=== PATIENT | female | born 1940 | race Caucasian/White ===

== ENCOUNTER 2024-09-20 14:35 | Inpatient (IN) | payer OTHER, MEDICARE, SELFPAY ==
[2024-09-20] VITALS (21 sets, daily range): BP systolic 84–140; BP diastolic 46–66; PULSE 59–112; RESP 12–99; TEMP 36.8–37.2; O2SAT 94–100; BMI 27.4
--- NOTE | 2024-09-20 14:57 | EKG_ITS ---
[facility] Test Date: 2024-09-20 Pat Name: ALEX ORNELAS Department: Room: - Gender: Female D[employer] Hand: : 1940 Requested By: Dawit Scanlon ([employer]PERVISOR) Order Number: [id number] Reading MD: Dawit Scanlon ([employer]PER[employer]OR) Measurements Intervals [place] Rate: 112 P: 17 CT: 148 QRS: -17 QRSD: 80 T: 17 QT: 322 QTc: 441 Interpretive Statements SINUS TACHYCARDIA POSSIBLE ANTERIOR MYOCARDIAL INFARCTION , PROBABLY OLD [30 ms Q WAVE IN V3/V4, OR R < 0.2 mV IN V4] ABNORMAL RHYTHM ECG Compared to ECG 06/25/2022 07:37:16 Myocardial infarct finding now present Sinus bradycardia no longer present /store/S0/[id number]
--- NOTE | 2024-09-20 15:20 | XR_ITS ---
Examination: CT brain head without contrast. 2-D sagittal coronal reconstructions Date and time of exam:September 20, 2024 1619 hours Comparison June 25, 2022 INDICATIONS: Onset dizziness today CTDI: vol (mGy):47.1 DLP: (mGycm):911 Technique: Multiple CT axial sections of the brain have been obtained, 5 mm slice thickness. Contrast has not been administered. 2-D sagittal, coronal reconstructions have been obtained Low dose protocols were performed. One or more of the following dose reduction techniques were used; automated exposure control, adjustment of the mA and/or KV according to patient size, use of iterative reconstruction technique. Findings: No significant ventricular enlargement. Intra-axial or extra-axial hemorrhage density is not seen. No mass effect or midline shift Basal cisterns are not remarkable. Fourth ventricle is midline. Cranial vault intact. Significant left sphenoid sinusitis Impression: Negative for acute hemorrhage, mass effect or midline shift As clinically warranted, if symptoms persist, consider brain MRI follow-up
--- NOTE | 2024-09-20 15:20 | PD.EDRME ---
Rapid Medical Screening Exam RME Arrival date/time: 09/20/24 14:35 84-year-old female presents to the emergency department complaints of dizziness patient reports previous episodes of the same Chief Complaint: Dizziness Time Seen by Provider: 09/20/24 14:57 Vital signs: Vital Signs Temperature 98.9 F 09/20/24 14:37 Pulse Rate 109 H 09/20/24 14:37 Respiratory Rate 19 09/20/24 14:37 Blood Pressure 140/46 H 09/20/24 14:37 Pulse Oximetry (%) 94 L 09/20/24 14:37 Oxygen Delivery Method Room Air 09/20/24 14:37
[2024-09-20] MEDS: MECLIZINE HCL 25 MG TABLET 50 MG PO (16:08)
[2024-09-20 16:18] LABS: Basophils % (Auto) 0 % (0-2.5); Eosinophils # (Auto) 0.1 Thou/mm3 (0.0-0.5); Eosinophils % (Auto) 1 % (0-10); Hematocrit 33.6 % (36.0-46.0); Hemoglobin 11.9 g/dL (12.0-16.0); Immature Granulocytes % (Auto) 0 % (0-0); Immature Granulocytes Auto 0.04 Thou/mm3 (0.00-0.00); Lymphocytes # (Auto) 0.6 Thou/mm3 (1.0-4.8); Lymphocytes % (Auto) 5 % (10-50); Mean Corpuscular HGB Conc 35.4 g/dl (31.0-37.0); Mean Corpuscular Hemoglobin 33.6 pg (25.0-35.0); Mean Corpuscular Volume 95 fL (80-100); Monocytes # (Auto) 0.8 Thou/mm3 (0.0-0.8); Monocytes % (Auto) 7 % (0-12); Neutrophils # (Auto) 10.2 Thou/mm3 (1.8-7.7); Neutrophils % (Auto) 87 % (37-80); Nucleated Red Blood Cell % 0 /100 WBC (0); Platelet Count 209 Thou/mm3 (140-440); RDW Standard Deviation 43.8 fL (36.4-46.3); Red Blood Count 3.54 Miln/mm3 (4.00-5.20); White Blood Count 11.7 Thou/mm3 (3.6-11.0)
[2024-09-20 17:01] LABS: Alanine Aminotransferase 11 U/L (10-49); Albumin, Serum 4.3 gm/dL (3.4-4.8); Albumin/Globulin Ratio 1.5 (1.2-2.2); Alkaline Phosphatase 73 U/L (46-116); Anion Gap 6 (7-16); Aspartate Amino Transferase 19 U/L (0-34); BUN/Creatinine Ratio 15 Ratio (12-20); Bilirubin,Total 0.7 mg/dL (0.3-1.2); Blood Urea Nitrogen 15 mg/dL (9-23); Calcium 9.5 mg/dL (8.3-10.6); Calcium (Corrected) 9.5 mg/dL (8.5-10.1); Carbon Dioxide 28.3 mMol/L (20.0-31.0); Chloride 98 mMol/L (98-107); Estimated Creatinine Clearance 38.7 mL/min (>60); Globulin 2.8 gm/dL (2.3-3.5); Glucose 117 mg/dL (74-106); Magnesium 1.7 mg/dL (1.6-2.6); Osmolality,Calculated 266 (275-295); Potassium 3.5 mMol/L (3.4-5.1); Sodium 132 mMol/L (136-145); Total Protein 7.1 gm/dL (5.7-8.2); eGFR 55 See Note
[2024-09-20 17:03] LABS: Troponin I 0.148 ng/mL (0.0-0.045)
--- NOTE | 2024-09-20 18:11 | EDNOTE_ITS ---
ED Dizzyness RME/HPI General Chief Complaint: Dizziness Stated Complaint: DIZZINESS,WEAKNESS Time Seen by Provider: 09/20/24 14:57 Source: patient and EMS Arrival date/time: 09/20/24 14:35 Mode of arrival: EMS Limitations: no limitations RME / HPI RME / HPI Narrative: 09/20/24 14:35 84-year-old female presents to the emergency department complaints of dizziness patient reports previous episodes of the same Dr. Morgan's Main ED Evaluation: 84-year-old female with history of hypertension and hypercholesterolemia who presents to the emergency department via ambulance for complaints of dizziness and chills since 1PM today. Patient notes she was in her usual health this morning when suddenly at 1PM she had onset of chills, chest discomfort and 1 large vomiting episode. She also reports headache but denies being dizzy. She also denies diaphoresis, shortnes of breath, cough, falls, injuries, loss of consciousness, chest pain, abdominal pain, UTI symptoms, URI, fever, chills, leg swelling or PND orthopnea. She reports past history of dizziness on and off. She denies history of diabetes. No history of tobacco, alcohol or substance use. No home oxygen. PCP: Gurwinder Galaviz Related Data Home Medications ?Medication ?Instructions ?Recorded ?Confirmed lisinopril 20 1 tab PO HS 06/25/22 06/25/22 mg-hydrochlorothiazide 25 mg tablet pravastatin 20 mg tablet 1 tab PO QDAY 06/25/22 06/25/22 timolol maleate 0.5 % eye drops 1 drp ophthalmic (eye) BID 06/25/22 06/25/22 Allergies Allergy/AdvReac Type Severity Reaction Status Date / Time No Known Allergies Allergy Unverified 06/25/22 17:05 Review of Systems Review of Systems Systems Reviewed: All systems reviewed, normal except as documented Past Medical History Past Medical History NEUROLOGIC: Negative Seizures CARDIAC: Negative Congestive Heart Failure RESPIRATORY: Negative Chronic Obstructive Pulmonary Disease (COPD) GENITOURINARY: Negative Renal Disease ENDOCRINE: Negative Diabetes Mellitus Type 1 or Diabetes Mellitus Type 2 OTHER HISTORY: Positive Blood Transfusions; Negative Blood Transfusion Reaction or Anesthesia Reactions Social History SMOKING STATUS: Never smoker ED Exam Narrative Physical exam: GENERAL: Patient is alert awake oriented x3 under no distress, laying down comfortably at 30-45?; does not look ill/ toxic. Patient has good eye contact. Patient is cooperative. VITALS: All vitals were reviewed and the pulse ox is 98% on room air, which is normal according to my interpretation. HEENT: Normocephalic, atraumatic and nontender. Pupils are equal and reactive to light and accommodation. Oral mucosa are moist. NECK: Supple, nontender, no meningismus, no JVD. CHEST: Nontender on palpation, no deformity and no crepitus. CARDIOVASCULAR: Heart regular rhythm no murmur or gallop rub or extra beats; not tachycardic. LUNGS: Clear to auscultation bilaterally with symmetrical chest rise. No laboring tachypnea or wheezing. No intercostal subcostal retraction. No rales and no rhonchi. ABDOMEN: Soft, flat, nontender at all, no guarding or rebound tenderness. There are no abnormal masses palpated. No pulsatile masses or bruits. Active and normal bowel sounds. GENITALIA: Not examined. RECTAL EXAM: Not done. EXTREMITIES: Nontender. No edema. No cyanosis. Patient is able to move all 4 extremities well. SKIN: Warm and dry, no rashes noted. MUSCULOSKELETAL: No lumbar or midline bony tenderness. There is no CVA tenderness. No paraspinal muscle spasm or tenderness. NEURO: Cranial nerves II through XII grossly intact. There is no focalization. GCS is 15. PSYCHIATRIC: Patient is in normal mood and affect, cooperative. General Limitations: Present no limitations Course Course Course Narrative: CXR is ordered for determining etiology of chest discomfort. Quality Measures none Orders Category Date Time Status COVID-19 Screening Questionnaire NOW Care 09/20/24 19:19 Completed Decision to Admit X1 Care 09/20/24 19:19 Active EKG (ED ONLY) *Do not use* NOW Care 09/20/24 14:57 Completed EKG (ED ONLY) *Do not use* NOW Care 09/20/24 19:[address] head/brain wo con Stat Exams 09/20/24 15:20 Completed CXRP [XR chest 1V portable] Stat Exams 09/20/24 18:35 Taken EKG (ED Only) Stat Exams 09/20/24 14:57 Draft EKG (ED Only) Stat Exams 09/20/24 19:17 Draft BNP [B-Type Natriuretic Peptide] Stat Lab 09/20/24 19:31 Received CBC Stat Lab 09/20/24 15:54 Completed Comprehensive Metabolic Panel Stat Lab 09/20/24 15:54 Completed Mag [Magnesium] Stat Lab 09/20/24 15:54 Completed PT [Prothrombin Time with INR] Stat Lab 09/20/24 15:54 Completed PTT [Partial Thromboplastin Time] Stat Lab 09/20/24 15:54 Completed Troponin I Stat Lab 09/20/24 15:54 Completed Troponin I Stat Lab 09/20/24 19:18 Received UA, C/S IF [Urinalysis, C/S if Indicated] Stat Lab 09/20/24 15:21 Ordered Aspirin Med 09/20/24 18:32 Discontinued 325 mg PO X1 ONE Meclizine HCl [Antivert] Med 09/20/24 15:21 Discontinued 50 mg PO X1 ONE Nitroglycerin Oint 2% [Nitro-paste Oint 2%] Med 09/20/24 18:32 Discontinued 1 inch TOP X1 ONE Vital Signs Vital signs: Vital Signs Temperature 98.9 F 09/20/24 14:37 Pulse Rate 109 H 09/20/24 14:37 Respiratory Rate 19 09/20/24 14:37 Blood Pressure 140/46 H 09/20/24 14:37 Pulse Oximetry (%) 94 L 09/20/24 14:37 Oxygen Delivery Method Room Air 09/20/24 14:37 Procedures -ED EKG Interpretation #1: Date of EK09/20/24 Rate: 112 Interpretation: Interpreted by me EKG Impression: Normal sinus rhythm, [place] deviation, No ectopy, Sinus tachycardia and Normal intervals Additional EKG comment: Borderline left axis deviation. Possible old anterior wall PA. Possible new anteroseptal wall PA. #2: Date of EK09/20/24 Rate: 69 Interpretation: Interpreted by me EKG Impression: Normal sinus rhythm, No acute ST-T changes, No ectopy, Sinus arrhythmia, No ischemic changes, Normal QRS, Normal intervals and Normal axis Dizziness MDM Narrative MDM Narrative:: Scribe Attestation: Shashi Artis, am scribing for and in the presence of Dr. Morgan. Patient comes in by ambulance due to dizziness and chills that she had at 1 PM. She arrived to this hospital at 2:35 PM. Patient states that she was doing well in the morning, she went out shopping and everything was okay until she all of a sudden at around 1 PM she started feeling chills and she had some kind of a discomfort in her chest and then after that she vomited once but in a large amount. She denies diaphoresis shortness of breath or coughing. She did have a mild headache but she denies being dizzy per se. She denies any fall or injuries or loss of consciousness. She denies chest pain per se. She denies any abdominal pain or UTI symptoms. She denies any recent URI or any fever chills. She denies leg swelling or PND orthopnea. In her past medical history she had dizziness on and off and she suffers of hypertension but no diabetes. She never had chest pains or any PA in the past. She does take medication for hypercholesterolemia and for hypertension but no blood thinners. She denies smoking or alcohol. She does not use any oxygen at home. Looking at her old records, patient was here in February of last year and after that she has been having blood work as an outpatient. Her white count today is 11.7 with a left shift of 87 segs 0 bands and 5 lymphs H&H is 12 and 33 her platelet count is normal at 209. Her chemistries are all normal including her BUN and creatinine at 15 and 1.0. Her blood sugar is borderline normal at 117 but her troponin is acutely elevated at 0.148 which is new and I do not have any comparison number to that in the past.. EKG does not show any acute STEMI nor any significant T wave inversion. Her initial blood pressure was 140/46 with a heart rate of 109 and right now it is 115/87 with a heart rate of 87. We gave her an aspirin and Nitropaste 1 inch and we will admit her to the hospital. I will order 1 more troponin and an EKG right now. I will also order a chest x-ray due to her chest discomfort. Patient obviously needs to be admitted to the hospital. At 7:52 PM, her chest x-ray has been done and it is negative for cardiomegaly, perihilar congestion, cephalization, any fluids in her costophrenic areas, any infiltrates or any free air underneath the diaphragm according to my interpretation. At 7:20 PM, I discussed this case with Dr. Coleman and she was admitted to the hospital. Differential diagnoses: Dizziness, chills, ischemic CVA, ischemic chest pain, unstable angina, uncontrolled high blood pressure Provider Notation: Although this document has been carefully reviewed, there may still be some phonetic and other typographical errors. These errors are purely grammatical due to imperfections in the software program and should not be construed in any way to compromise the substance of the patient's medical care during this visit. Patient data External records reviewed:: [facility] previous records and EMS form Clinical information provided by:: patient and EMS Social determinants that could affect healthcare access:: none Patient has the following chronic illnesses:: hypercholesterolemia, hypertension How is presenting disease/condition affected by chronic disease/condition?: uneffected by Evaluation data The following diagnostics were reviewed and interpreted by me:: lab results, radiology exam(s) and EKG tracing(s) Lab and/or radiology exams considered but not ordered:: None Interpretation Summary: I personally reviewed CT BRAIN HEAD WO CONTRAST on this patient. Films were reviewed. I agree with the radiologist's interpretation. Examination: CT brain head without contrast. 2-D sagittal coronal reconstructions Date and time of exam:September 20, 2024 1619 hours Comparison June 25, 2022 INDICATIONS: Onset dizziness today Findings: No significant ventricular enlargement. Intra-axial or extra-axial hemorrhage density is not seen. No mass effect or midline shift Basal cisterns are not remarkable. Fourth ventricle is midline. Cranial vault intact. Significant left sphenoid sinusitis Impression: Negative for acute hemorrhage, mass effect or midline shift As clinically warranted, if symptoms persist, consider brain MRI follow-up Dictated By: Juan Schrader MD Medications / Prescriptions Medications or Prescriptions considered but not ordered:: None Medication administrations:: Medication Administration History Discontinued Medications Aspirin (Aspirin 325 Mg Tablet) 325 mg PO X1 ONE Stop: 09/20/24 18:33 Last Admin: 09/20/24 18:52 Dose: 325 mg Documented By: BUNNY Meclizine HCl (Meclizine Hcl 25 Mg Tablet) 50 mg PO X1 ONE Stop: 09/20/24 15:22 Last Admin: 09/20/24 16:08 Dose: 50 mg Documented By: ANGIE Nitroglycerin (Nitroglycerin Oint 2% 1 Inch Packet) 1 inch TOP X1 ONE Stop: 09/20/24 18:33 Last Admin: 09/20/24 18:53 Dose: 1 inch Documented By: BUNNY As above, if any Consultations Consultation(s) initiated? (list below): Yes Consultation #1 (Physician, Specialty, Details): See narrative Diagnosis Dizziness Differential Diagnosis: other (Dizziness, chills, ischemic CVA, ischemic chest pain, unstable angina, uncontrolled high blood pressure) Most likely diagnosis given after review of the tests above:: Chest pain, Angina pectoris, Angina pectoris, unstable, Elevated troponin Admission Indicated Admission indicated?: indicated Explain why admission is indicated or not indicated:: See narrative Admission Request Was there a request for admission?: Yes Admission Attestation Admission request attestation: Discussed case with [] from Hospitalist service regarding admission. Discussed patients ED course, exam findings, labs, and radiology results. The Hospitalist [agrees,declines] to accept the patient for admission. Disposition Plan Disposition Plan: Admit Discharge Plan Plan Patient Disposition: Admit Acute Care w/in Hospital Prescriptions/Referrals Prescriptions/Med Rec: No Action lisinopril-hydrochlorothiazide 20-25 mg tablet 1 tab PO HS pravastatin 20 mg tablet 1 tab PO QDAY timolol maleate 0.5 % Drops 1 drp OPHTHALMIC (EYE) BID Referrals: Gurwinder Galaviz MD [Primary Care Provider] - In 1 week Problem List Clinical Impression: Chest pain, Angina pectoris, Angina pectoris, unstable, Elevated troponin Patient/Caregiver Discharge Instructions Print Language: Vietnamese Stand Alone Forms: Maye Award Info., Patient Portal Info Letter
--- NOTE | 2024-09-20 18:35 | XR_ITS ---
Examination: AP chest single view Technique an AP portable sitting chest single view Exam date and time: September 21, 2024 1931 hrs. Comparison June 22 Indications: Onset chest pain today Findings: Normal heart size Minimal obscuration detail right hemidiaphragm No pulmonary edema Intact osseous structures Impression: Suspicious for early pneumonia right base
[2024-09-20] MEDS: Aspirin 325 MG TABLET PO (18:52)
[2024-09-20] MEDS: NITROGLYCERIN OINT 2% 1 INCH PACKET TOP (18:53)
--- NOTE | 2024-09-20 19:17 | EKG_ITS ---
[facility] Test Date: 2024-09-20 Pat Name: ALEX ORNELAS Department: Room: - Gender: Female [employer] Specialist: : 1940 Requested By: Lb Morgan Order Number: [id number] Reading MD: Lb Morgan Measurements Intervals [place] Rate: 69 P: 32 [place]: 176 QRS: -7 QRSD: 93 T: 3 QT: 411 QTc: 442 Interpretive Statements SINUS RHYTHM WITH SINUS ARRHYTHMIA Compared to ECG 09/20/2024 15:22:14 Sinus tachycardia no longer present Myocardial infarct finding no longer present /store/S0/[id number]/[id number]
[2024-09-20 19:29] LABS: Partial Thromboplastin Time 26.3 Seconds (22.0-36.0)
[2024-09-20 19:58] LABS: B-Type Natriuretic Peptide 69 pg/mL (0-100)
[2024-09-20 20:15] LABS: Troponin I 0.316 ng/mL (0.0-0.045)
--- NOTE | 2024-09-20 20:30 | ESHP_ITS ---
<Statement entered by Declan Hernandez MD - 09/21/24 08:34> I was present for the essential components of the history, physical examination, diagnosis, and treatment plan with the resident. I have reviewed the documentation, discussed the case with the resident and agree with the patient's care as documented by the resident. Declan Hernandez MD Documentation for date of: 09/20/24 HPI History of Present Illness History of present illness: Bree Redmond is an 84-year-old female with a past medical history of hypertension and hyperlipidemia who presents to the ED with an episode of dizziness. Earlier in the afternoon patient states she developed sudden onset dizziness, chills, and 1 episode of nausea and vomiting that subsided within minutes. No associated loss of consciousness, fever, shortness of breath, chest discomfort or preceding symptoms within the last few days. In the ED, she was tachycardic at 109 bpm but otherwise vitals are stable. Troponins elevated at 0.148 that up trended to 0.316. Na 132, K 3.5, mag 1.7. Initial EKG showed sinus tachycardia and CT head negative. Of note, patient does endorse dysuria but cannot recall hematuria, cloudy urine, or foul-smelling urine. PMHx: hypertension, hyperlipidemia Medications: Lisinopril-HCTZ, pravastatin SHx: denies cigarette, alcohol, and illicit drug use PSHx: hysterectomy, appendectomy Review of Systems Review of Systems Systems Reviewed: All systems reviewed, normal except as documented Exam Vital Signs Temp Pulse Resp BP Pulse Ox O2 Del Method O2 Flow Rate 98.2 F 78 20 101/60 99 Nasal Cannula 2 09/20/24 18:41 09/20/24 19:57 09/20/24 19:57 09/20/24 19:57 09/20/24 19:57 09/20/24 19:57 09/20/24 19:57 Narrative Exam General: AOx3, no acute distress, able to speak full sentences HEENT: NC/AT, mucous membranes moist, bilateral sclera anicteric Cardiovascular: regular rate and rhythm, S1/S2 present, no murmurs appreciated Pulmonary: clear to auscultation bilaterally, no rales/rhonchi/wheezes Abdominal: soft, non-tender, non-distended, no rebound/guarding, normal bowel sounds present Musculoskeletal: normal ROM, no peripheral edema Skin: warm and dry, intact, no rashes Neuro: CN II-XII intact, no focal deficits Results: Labs 09/21/24 02:47 09/21/24 02:47 Labs: Short CBC 09/20/24 Range/Units 15:54 WBC 11.7 H (3.6-11.0) Thou/mm3 Hgb 11.9 L (12.0-16.0) g/dL Hct 33.6 L (36.0-46.0) % Plt Count 209 (140-440) Thou/mm3 BMP 09/20/24 15:54 Sodium 132 L Potassium 3.5 Chloride 98 Carbon Dioxide 28.3 BUN 15 Creatinine 1.0 Glucose 117 H Calcium 9.5 Cardiac Enzymes 09/20/24 09/20/24 Range/Units 15:54 19:31 Troponin I 0.148 H* 0.316 H* (0.0-0.045) ng/mL Liver Function 09/20/24 Range/Units 15:54 Total Bilirubin 0.7 (0.3-1.2) mg/dL AST 19 (0-34) U/L ALT 11 (10-49) U/L Alkaline Phosphatase 73 (46-116) U/L Albumin 4.3 (3.4-4.8) gm/dL Quality Measures Quality Measures none Advance care planning discussed with:: patient Medications Home Medications and Allergies Home Medications ?Medication ?Instructions ?Recorded ?Confirmed ?Type lisinopril 20 1 tab PO HS 06/25/22 06/25/22 History mg-hydrochlorothiazide 25 mg tablet pravastatin 20 mg tablet 1 tab PO QDAY 06/25/22 06/25/22 History timolol maleate 0.5 % eye drops 1 drp ophthalmic (eye) BID 06/25/22 06/25/22 History Allergies Allergy/AdvReac Type Severity Reaction Status Date / Time No Known Allergies Allergy Unverified 06/25/22 17:05 Visit Medications Discontinued Medications Aspirin (Aspirin 325 Mg Tablet) 325 mg PO X1 ONE Stop: 09/20/24 18:33 Last Admin: 09/20/24 18:52 Dose: 325 mg Meclizine HCl (Meclizine Hcl 25 Mg Tablet) 50 mg PO X1 ONE Stop: 09/20/24 15:22 Last Admin: 09/20/24 16:08 Dose: 50 mg Nitroglycerin (Nitroglycerin Oint 2% 1 Inch Packet) 1 inch TOP X1 ONE Stop: 09/20/24 18:33 Last Admin: 09/20/24 18:53 Dose: 1 inch Assessment & Plan Plan Bree Redmond is an 84-year-old female with a past medical history of hypertension and hyperlipidemia who was admitted for evaluation and work-up for elevated troponins. #Elevated troponins #NSTEMI type II Presents with episode of N/V and dizziness. No prior cardiac history. Low suspicion for primary cardiac etiology. No hypertensive urgency/emergency, new onset CHF, or THOR. Possible viral etiology. Troponin uptrending from 0.148 to 0.316. CXR showed possible early pneumonia in right lung base. Mild leukocytosis but afebrile, no cough, or sore throat. ? Trend troponins ? Follow-up influenza, COVID, RSV ? Follow-up orthostatic vitals ? Follow-up echo #Urinary tract infection Endorses dysuria but cannot recall hematuria, cloudy urine, or foul-smelling urine. Previous urine culture positive for E. coli sensitive to ceftriaxone 12/2023. ? Ceftriaxone 1 g IV daily ? Follow-up urine culture #Hypertension Will defer HCTZ given mild hyponatremia. ? Lisinopril 10 mg p.o. daily #Hyperlipidemia ? Pravastatin 20 mg p.o. at bedtime Hospital management: Disposition: 2-3 hospital nights Fluids: not indicated Diet: cardiac Lines: peripheral DVT prophylaxis: heparin BID GI prophylaxis: pantoprazole 40 mg PO daily CODE STATUS: full code ----- Plan discussed with attending physician Dr. David Robledo MD PGY-1 Internal Medicine
--- NOTE | 2024-09-20 20:47 | ECHO_ITS ---
Transthoracic Echo Report Ht (in): 63 Wt (lb): 155 Exam Location: [facility] Status: Inpatient Material Disposition Inspector: Leigh Macdonald Indications: Procedure Performed: BP: 122 / 74 HR: 70 Rhythm: Sinus Technical Quality: Fair MEASUREMENTS (Male / Female) Normal Values 2D ECHO LV Diastolic Diameter PLAX 3.7 cm 4.2 - 5.9 / 3.9 - 5.3 cm LV Systolic Diameter PLAX 2.6 cm IVS Diastolic Thickness 0.8 cm 0.6 - 1.0 / 0.6 - 0.9 cm LVPW Diastolic Thickness 0.9 cm 0.6 - 1.0 / 0.6 - 0.9 cm LV Relative Wall Thickness 0.4 LVOT Diameter 1.7 cm LA Volume Index 18.5 cm?/m? 16 - 28 cm?/m? Ascending Aorta Diameter 2.7 cm M-MODE Aortic Root Diameter MM 2.8 cm LA Systolic Diameter MM 4.1 cm LA Ao Ratio MM 1.5 AV Cusp Separation MM 1.8 cm DOPPLER AV Peak Velocity 170.0 cm/s AV Peak Gradient 11.6 mmHg AV Mean Gradient 7.0 mmHg AV Velocity Time Integral 40.2 cm LVOT Peak Velocity 126.0 cm/s LVOT Peak Gradient 6.4 mmHg LVOT Velocity Time Integral 28.4 cm LVOT Cardiac Index 2525.7 cm?/min?m? AV Area Cont Eq vti 1.6 cm? AV Area Cont Eq pk 1.7 cm? MV Peak Velocity 135.0 cm/s MV Peak Gradient 7.3 mmHg MV Mean Velocity 79.9 cm/s MV Mean Gradient 3.0 mmHg MV Area PHT 3.7 cm? MR Peak Velocity 412.0 cm/s MR Peak Gradient 67.9 mmHg Mitral E Point Velocity 94.6 cm/s Mitral A Point Velocity 120.0 cm/s Mitral E to A Ratio 0.8 LV E' Lateral Velocity 7.1 cm/s Mitral E to LV E' Lateral Ratio 13.4 LV E' Septal Velocity 7.0 cm/s Mitral E to LV E' Septal Ratio 13.6 FINDINGS Left Ventricle Normal left ventricular size, wall thickness, systolic function with no obvious regional wall motion abnormalities. The ejection fraction is visually estimated at 55-60%. Right Ventricle The right ventricle is normal in size and systolic function. Left Atrium The left atrium is normal by two-dimensional, color flow and Doppler imaging with no structural abnormalities, no thrombus formation present. Right Atrium The right atrium is normal by two-dimensional imaging, color flow and Doppler imaging with no struct ural abnormalities, no thrombus formation present. Atrial Septum The interatrial septum appears normal with no evidence of a shunt. Aorta The aorta is normal by two-dimensional, color flow and Doppler interrogation. Mitral Valve The mitral valve is mildly MAC. There is mild mitral valve regurgitation. Aortic Valve The aortic valve is trileaflet and normal by two-dimensional, color flow and Doppler interrogation. There is trace aortic valve regurgitation. Tricuspid Valve The tricuspid valve is normal by two-dimensional, color flow and Doppler interrogation. There is tra ce tricuspid valve regurgitation. Pulmonic Valve There is no significant pulmonic valve regurgitation. Vessels The pulmonary artery appears normal. The inferior vena cava pulmonary and hepatic veins appear roddy l. Pericardium The pericardium is normal by two-dimensional imaging. There is no significant pericardial effusion. CONCLUSIONS Indication: NSTEMI - elevated troponins Normal LV size and function. Estimated EF 55-60%. Stage 1 diastolic dsfunction. Normal RV size and function. Mild MAC. Mild MR. Trace AI, TR. Natanael Nevarez (Electronically Signed) Final Date: 21 September 2024 17:34
[2024-09-20] MEDS: Magnesium Sulfate 2 GM Ivpb 2 GM/50 ML BAG IV (21:09)
[2024-09-20] MEDS: HEPARIN SOD INJ 5000 UNIT/ML VIAL SC (21:11)
[2024-09-20] MEDS: PRAVASTATIN SODIUM 10 MG TABLET 20 MG PO (21:11)
[2024-09-20 21:48] LABS: Collection Type, Urine Clean Catch; Squamous Epithelial Cell,Urine 0 /hpf (0-5)
[2024-09-20 22:36] LABS: Bacteria,Urine Rare; Bilirubin,Urine Negative (Negative); Blood,Urine 1+ (Negative); Budding Yeast,Urine Present; Clarity,Urine Turbid (Clear/Hazy); Color,Urine Yellow (Lt Yel-Yel); Glucose, Urine Negative (Negative); Ketones,Urine Negative (Negative); Leukocyte Esterase,Urine Positive (Negative); Nitrite,Urine Positive (Negative); PH,Urine 6.5 (5.0-7.0); Protein,Urine 1+ (Neg - Trace); RBC,Urine 29 /hpf (0-3); Specific Gravity,Urine 1.015 (1.001-1.035); Urobilinogen,Urine Negative mg/dL (0.0-1.0); WBC,Urine 818 /hpf (0-5)
[2024-09-21] VITALS (17 sets, daily range): BP systolic 88–143; BP diastolic 46–90; PULSE 56–100; RESP 14–95; TEMP 36.3–37.3; O2SAT 91–100
[2024-09-21 02:58] LABS: Basophils % (Auto) 1 % (0-2.5); Eosinophils # (Auto) 0.2 Thou/mm3 (0.0-0.5); Eosinophils % (Auto) 2 % (0-10); Hematocrit 28.4 % (36.0-46.0); Immature Granulocytes % (Auto) 1 % (0-0); Immature Granulocytes Auto 0.04 Thou/mm3 (0.00-0.00); Lymphocytes # (Auto) 2.4 Thou/mm3 (1.0-4.8); Lymphocytes % (Auto) 28 % (10-50); Mean Corpuscular HGB Conc 35.2 g/dl (31.0-37.0); Mean Corpuscular Hemoglobin 33.3 pg (25.0-35.0); Mean Corpuscular Volume 95 fL (80-100); Monocytes % (Auto) 11 % (0-12); Neutrophils % (Auto) 58 % (37-80); Nucleated Red Blood Cell % 0 /100 WBC (0); Platelet Count 195 Thou/mm3 (140-440); White Blood Count 8.7 Thou/mm3 (3.6-11.0)
[2024-09-21] MEDS: cefTRIAXone/D5w 1gm IV premix 50 ML IV ×2 (03:05→20:36)
[2024-09-21 03:26] LABS: Anion Gap 4 (7-16); BUN/Creatinine Ratio 15 Ratio (12-20); Blood Urea Nitrogen 16 mg/dL (9-23); Calcium 8.7 mg/dL (8.3-10.6); Carbon Dioxide 31.3 mMol/L (20.0-31.0); Chloride 97 mMol/L (98-107); Cholesterol 154 mg/dL (132-200); Creatinine (Component) 1.1 mg/dL (0.6-1.3); Estimated Creatinine Clearance 35.2 mL/min (>60); Glucose 100 mg/dL (74-106); HDL Cholesterol 52 mg/dL (40-60); LDL Cholesterol,Calculated 78 mg/dL (0-130); Magnesium 2.4 mg/dL (1.6-2.6); Osmolality,Calculated 265 (275-295); Phosphorous 3.5 mg/dL (2.4-5.1); Potassium 3.3 mMol/L (3.4-5.1); Sodium 132 mMol/L (136-145); Thyroid Stimulating Hormone 0.89 uIU/mL (0.55-4.78); Triglycerides 120 mg/dL (30-150); eGFR 49 See Note
[2024-09-21] MEDS: HEPARIN SOD INJ 5000 UNIT/ML VIAL SC ×2 (08:39→20:35)
[2024-09-21] MEDS: PANTOPRAZOLE 40 MG TABLET PO (08:39)
[2024-09-21] MEDS: ASPIRIN EC 81 MG TABEC PO (08:39)
[2024-09-21] MEDS: lorataDINE 10 MG TABLET PO ×2 (10:23→20:35)
[2024-09-21] MEDS: RINGERS LACTATED 500 ML 500 ML 999 ML IV (10:24)
--- NOTE | 2024-09-21 11:22 | ESPR_ITS ---
<Statement entered by Matthew Ware MD - 09/23/24 17:39> Attending attestation: I reviewed above note and agree with findings and plans. I have also personally examined the patient with medicine team and went over assessment and plan with medical team including digital marketing intern and resident physician. <Statement entered by Vinay Lobo MD - 09/21/24 18:30> Senior Resident Attestation: I supervised/discussed management plan with digital marketing intern physician Dr. Martin, and was involved in the care of this patient. I personally saw and examined the patient and discussed the assessment and plan with the entire medicine team, including my attending. I agree with the assessment and plan as documented. Patient's care was discussed with attending physician, Dr. Ware. Vinay Lobo MD PGY-2. Documentation for date of: 09/21/24 Subjective Subjective Interval history: Patient was seen at bedside this morning. No overnight events. Patient states he is feeling well and denies any chest pain today and even prior to admission. Troponins are downtrending. Pending echo. Exam Vital Signs Temp Pulse Resp BP Pulse Ox O2 Del Method O2 Flow Rate 97.4 F 70 18 122/74 93 L Room Air 2 09/21/24 09:30 09/21/24 09:30 09/21/24 09:30 09/21/24 09:30 09/21/24 09:30 09/21/24 09:30 09/20/24 19:57 Narrative Exam General: A/O x3, no acute distress Eyes: PERRL, EOMI. Anicteric, vision grossly intact. Ears: No ear pain, no ear discharge, Hearing grossly intact. Nose: No nasal discharge. Mouth/Throat: Dry mucous membranes, no redness, no lesions. Neck: Neck supple, non-tender, no cervical lymphadenopathy. Lungs: Clear TROY to auscultation and percussion, No accessory muscle use. Cardio: Normal S1/S2, regular rhythm, no murmurs, no JVD Abdomen: Soft, non-tender, no palpable masses, peristalsis present, no guarding or rebound. Extremities: Symmetrical, no significant deformities, no peripheral edema , non-tender, peripheral pulses presents. Skin: No rashes, no lesions, warm to touch. Neuro: No focal neurological deficits. motor and sensory intact Psych: Cooperative, appropriate mood and effect. Objective Labs 09/21/24 02:47 09/21/24 02:47 Labs: Laboratory Results - last 24 hr 09/20/24 09/20/24 09/20/24 15:54 19:31 21:21 WBC 11.7 H RBC 3.54 L Hgb 11.9 L Hct 33.6 L MCV 95 MCH 33.6 MCHC 35.4 RDW Std Deviation 43.8 Plt Count 209 Neut % (Auto) 87 H Lymph % (Auto) 5 L Pershing % (Auto) 7 Eos % (Auto) 1 Baso % (Auto) 0 Neut # (Auto) 10.2 H Lymph # (Auto) 0.6 L Pershing # (Auto) 0.8 Eos # (Auto) 0.1 Baso # (Auto) 0.0 Immature Gran # (Auto) 0.04 H Absolute Nucleated RBC 0.00 Immature Gran % 0 Nucleated RBC % 0 PT 11.0 INR 1.0 APTT 26.3 Sodium 132 L Potassium 3.5 Chloride 98 Carbon Dioxide 28.3 Anion Gap 6 L BUN 15 Creatinine 1.0 Estim Creat Clear Calc 38.7 L eGFR 55 L BUN/Creatinine Ratio 15 Glucose 117 H Calculated Osmolality 266 L Calcium 9.5 Corrected Calcium 9.5 Phosphorus Magnesium 1.7 Total Bilirubin 0.7 AST 19 ALT 11 Alkaline Phosphatase 73 Troponin I 0.148 H* 0.316 H* B-Natriuretic Peptide 69 Total Protein 7.1 Albumin 4.3 Globulin 2.8 Albumin/Globulin Ratio 1.5 Triglycerides Cholesterol LDL Cholesterol, Calc HDL Cholesterol Cholesterol/HDL Ratio TSH Ur Collection Type Clean Catch Urine Color Yellow Urine Clarity Turbid A Urine pH 6.5 Ur Specific [place] 1.015 Urine Protein 1+ A Urine Glucose (UA) Negative Urine Ketones Negative Urine Blood 1+ A Urine Nitrite Positive Urine Bilirubin Negative Urine Urobilinogen (Auto) Negative Ur Leukocyte Esterase Positive Urine RBC 29 H Urine WBC 818 H Ur Squamous Epith Cells 0 Urine Bacteria Rare Urine Yeast (Budding) Present A 09/21/24 09/21/24 02:47 10:02 WBC 8.7 RBC 3.00 L Hgb 10.0 L Hct 28.4 L MCV 95 MCH 33.3 MCHC 35.2 RDW Std Deviation 45.0 Plt Count 195 Neut % (Auto) 58 Lymph % (Auto) 28 Pershing % (Auto) 11 Eos % (Auto) 2 Baso % (Auto) 1 Neut # (Auto) 5.0 Lymph # (Auto) 2.4 Pershing # (Auto) 1.0 H Eos # (Auto) 0.2 Baso # (Auto) 0.0 Immature Gran # (Auto) 0.04 H Absolute Nucleated RBC 0.00 Immature Gran % 1 H Nucleated RBC % 0 PT INR APTT Sodium 132 L Potassium 3.3 L Chloride 97 L Carbon Dioxide 31.3 H Anion Gap 4 L BUN 16 Creatinine 1.1 Estim Creat Clear Calc 35.2 L eGFR 49 L BUN/Creatinine Ratio 15 Glucose 100 Calculated Osmolality 265 L Calcium 8.7 Corrected Calcium Phosphorus 3.5 Magnesium 2.4 Total Bilirubin AST ALT Alkaline Phosphatase Troponin I 0.330 H* 0.260 H* B-Natriuretic Peptide Total Protein Albumin Globulin Albumin/Globulin Ratio Triglycerides 120 Cholesterol 154 LDL Cholesterol, Calc 78 HDL Cholesterol 52 Cholesterol/HDL Ratio 3.0 L TSH 0.89 Ur Collection Type Urine Color Urine Clarity Urine pH Ur Specific [place] Urine Protein Urine Glucose (UA) Urine Ketones Urine Blood Urine Nitrite Urine Bilirubin Urine Urobilinogen (Auto) Ur Leukocyte Esterase Urine RBC Urine WBC Ur Squamous Epith Cells Urine Bacteria Urine Yeast (Budding) Quality Measures Quality Measures none Advance care planning discussed with:: patient Assessment & Plan Assessment Current Active Medications: Generic Name Dose Route Start Last Admin Trade Name Freq PRN Reason Stop Dose Admin Acetaminophen 650 mg 09/20/24 20:23 Acetaminophen 325 Mg Tablet PO 10/20/24 20:22 Q6H PRN PAIN OR FEVER > 101 Aspirin 81 mg 09/21/24 09:00 09/21/24 08:39 Aspirin Ec 81 Mg Tabec PO 10/21/24 08:59 81 mg QDAY DIVINA Administration Heparin Sodium (Porcine) 5,000 unit 09/20/24 21:00 09/21/24 08:39 Heparin Sod Inj 5000 Unit/Ml Vial SC 10/04/24 20:59 5,000 unit Q12HR DIVINA Administration Ceftriaxone Sodium/Dextrose 50 mls @ 100 mls/hr 09/21/24 02:39 09/21/24 03:56 Rocephin/D5w 1gm Iv Premix IV 09/28/24 02:38 Infused DAILY@2100 DIVINA Infusion Lisinopril 10 mg 09/21/24 09:00 09/21/24 08:38 Lisinopril 2.5 Mg Tablet PO 10/21/24 08:59 Not Given QDAY DIVINA Loratadine 10 mg 09/21/24 10:00 09/21/24 10:23 Loratadine 10 Mg Tablet PO 10/21/24 09:59 10 mg BID DIVINA Administration Ondansetron HCl 4 mg 09/20/24 20:23 Ondansetron Inj 2 Mg/Ml Inj 2 Ml IV 10/20/24 20:22 Q6H PRN NAUSEA OR VOMITING Protocol Pantoprazole Sodium 40 mg 09/21/24 09:00 09/21/24 08:39 Pantoprazole 40 Mg Tablet PO 10/21/24 08:59 40 mg QDAY DIVINA Administration Pravastatin Sodium 20 mg 09/20/24 21:00 09/20/24 21:11 Pravastatin Sodium 10 Mg Tablet PO 10/20/24 20:59 20 mg HS DIVINA Administration Plan 84-year-old female with past medical history of hypertension, HFpEF (50-55% 2021), and hyperlipidemia was admitted to the hospital on 09/20/2024 for NSTEMI type II and UTI. #NSTEMI type II likely demand ischemia #Hypotension #Hx of HFpEF (50-55% 2021) ?Initial the patient did not have any chest pain. ?Most likely demand ischemia given patient's UTI and hypotension, but MAP above 65 ?Initial troponins were 0.148 and peaked at 0.33 then down trended ?EKG did not show any ST changes Plan: ?500 cc bolus x 1 ?Echo ordered ?Cardiology consulted (), appreciate recommendations #UTI #Leukocytosis ?Patient did mention that she had some dysuria during the week and increased frequency. ?UA was positive for nitrates, leukocyte esterase, and bacteria ?Initial WBCs were 11.7 and down trended to 8.7 today Plan: ?Continue Rocephin [09/21/2024?] ?500 cc bolus x 1 ?Will continue to monitor #Normocytic normochromic anemia ?Patient's hemoglobin was 11.9 on admission ?No active signs of bleeding Plan: ?Will transfuse if hemoglobin less than 7 ?Will continue to monitor #Electrolyte imbalance #Hypokalemia #Hyponatremia #Hypochloremia ?Patient's sodium 132, potassium 3.3, chloride 97 ?Most likely due to poor oral intake Plan: ?Will replete as necessary ?Will continue to monitor #Hx of hypertension ?Held patient's lisinopril as she was hypotensive today #Hx of hyperlipidemia ?Continue pravastatin 20 mg at bedtime Disposition: Patient seen in telemetry, continue Rocephin for UTI, pending cardio recommendations and Echo. Diet: Cardiac GI prophylaxis: protonix DVT prophylaxis: Heparin Sc Code: Full code Case disclosed with Attending Dr. Ware and My senior Dr. Lobo PGY2. Boo Sheldon PGY1
[2024-09-21] MEDS: POTASSIUM CHLORIDE 20 mEq TABCR PO (11:25)
--- NOTE | 2024-09-21 12:13 | ESCONSULT_ITS ---
HPI Data of Consult Patient: new to practice Consult date: 09/21/24 Requesting Physician: Declan Hernandez MD Admitting Provider: Declan Hernandez MD Attending Provider: Declan Hernandez MD Primary Care Provider: Gurwinder Galaviz MD Consult Narrative Reason for consult: Dizziness, Elevated Troponin History of present illness: HISTORY OF PRESENT ILLNESS : Patient is an 84-year-old female with past medical history significant for essential hypertension, hyperlipidemia, glaucoma, allergic sinusitis/rhinitis, vertigo, history of syncope with ground-level fall [2021], bilateral distal fibula fractures s/p ORIF [2021]. Presented with a chief complaint of chills and dizziness yesterday. Patient stated that she was out grocery shopping with a friend, [place] and was well. When she got back home she started to feel cold, shivering and took a Tylenol with no relief. She then called the ambulance to bring her to the hospital. Patient has a history of vertigo and said that this episode did not feel like it usually does. Patient denies any chest pain/pressure, palpitations or shortness of breath. Also denies any PND or leg swelling. She also denies any documented fever, sick contacts or recent travel. Also denies any presyncope/syncope. Patient has a hospital bed at home and sleeps at a 30 degree elevation due to postnasal drip. She also endorses a chronic nonproductive cough with a postnasal drip for which she takes fluticasone nasal spray as needed. Of note patient endorses some dysuria 3-4 days ago and she increased her water intake and that subsequently subsided. At baseline patient ambulates without assistance or a walker and said she can walk for 3-4 hours while grocery shopping without any complaints. Her last transthoracic echocardiogram completed [place] [address] Mitchell findings include: Normal left ventricular size and function. LVEF 50-55%. normal cardiac chamber size no significant regurgitant valves mild MAC aortic valve thickened She does not see a medical scientist regularly. She reports environmental allergies for which she gets monthly injections from Dr. Esparza at [facility] in [place] ED course: Tachycardia, HR 109. NA 132, K3.5, Mg 1.7 troponins were elevated at 0.148 up trended to 0.33 and subsequently down trended to 0.26. Initial EKG showed sinus tachycardia rate 112 and repeat EKG showed sinus arrhythmia rate 69 with T wave inversions in lead III, aVR, V1. Urinalysis was positive for cloudy urine, 1+ protein, 1+ blood, positive nitrites and leukocyte esterase and yeast. Chest x-ray was significant for right lower lobe consolidation, no signs of vascular congestion, pleural effusion or pulmonary edema. Head CT was significant for left sphenoid sinusitis. Patient was admitted for UTI and cardiology was consulted. Medication list: ?Lisinopril/hydrochlorothiazide 1 tab p.o. at bedtime ? Loratadine 10 mg p.o. twice daily ? Pravastatin 1 tab p.o. daily ? Timolol 1 drop each eye twice daily cc:: cc: Declan Hernandez MD Review of Systems Review of Systems Narrative Review of Systems: GENERAL: Denies fever, diaphoresis HEENT: Frontal headache, denies any weakness Neuro: Denies unusual weakness or difficulty speaking. CARDIO: As above PULM: As above GI: Denies abdominal pain, N/V/C/D. Reports having BMs. URO: As above MSK/EXT/SKIN: Denies joint/skeletal/muschle pain, issues/changes in upper or lower extremities, itchiness, or superficial pain. PSYCH: Cooperative, pleasant mood & affect. The rest of the review of systems is otherwise negative. Past Medical History Past Medical History Comments PMH COMMENT: Past medical history: ?Essential hypertension ? Hyperlipidemia ? Glaucoma ? Allergic sinusitis/rhinitis ? Vertigo ? History of syncope with ground-level fall [2021] Past surgical history: ?Appendectomy ? Hysterectomy ? B/L distal fibula fractures s/p ORIF 2021 Allergies: Environmental allergies Family History: Asthma (brother), heart disease (father, developed in his 80s), mother lived into her 90s Social history: Patient is retired and currently lives alone. Can ambulate without a walker or assistance. Patient has a history of smoking for 1 summer in the 1970s but stopped as she could not tolerated due to her allergies. Also has a history of secondhand smoke for 25 years from her who in the early . Denies any alcohol use. Has good social support from her neighbors and daughter who visits her regularly Exam Vital Signs Temp Pulse Resp BP Pulse Ox O2 Del Method O2 Flow Rate 97.4 F 70 18 122/74 93 L Room Air 2 09/21/24 09:30 09/21/24 09:30 09/21/24 09:30 09/21/24 09:30 09/21/24 09:30 09/21/24 09:30 09/20/24 19:57 Narrative Exam Constitutional Alert, oriented x 3 and comfortable. Elderly female HEENT Vision grossly intact. Patent nares. Trachea midline Respiratory Chest normal on inspection and clear auscultation bilaterally Cardiovascular S1 and S2 audible, RRR. No murmurs carotid bruit. No gross JVD. Abdominal Soft and non tender to palpation in all quadrants. BS + Genitourinary No bladder tenderness, no flank pain. Normal to palpation Musculoskeletal Extremities tone within normal limits. No LE edema. Neurological CN II - XII grossly intact. Extremity motor and sensation grossly intact. Skin Warm, dry and intact. No apparent lesions. Psychiatric Patient has good affect, is cooperative Results Labs 09/21/24 02:47 09/21/24 02:47 Labs: Short CBC 09/20/24 09/21/24 Range/Units 15:54 02:47 WBC 11.7 H 8.7 (3.6-11.0) Thou/mm3 Hgb 11.9 L 10.0 L (12.0-16.0) g/dL Hct 33.6 L 28.4 L (36.0-46.0) % Plt Count 209 195 (140-440) Thou/mm3 BMP 09/20/24 09/21/24 15:54 02:47 Sodium 132 L 132 L Potassium 3.5 3.3 L Chloride 98 97 L Carbon Dioxide 28.3 31.3 H BUN 15 16 Creatinine 1.0 1.1 Glucose 117 H 100 Calcium 9.5 8.7 Cardiac Enzymes 09/20/24 09/20/24 09/21/24 Range/Units 15:54 19:31 02:47 Troponin I 0.148 H* 0.316 H* 0.330 H* (0.0-0.045) ng/mL 09/21/24 Range/Units 10:02 Troponin I 0.260 H* (0.0-0.045) ng/mL Liver Function 09/20/24 Range/Units 15:54 Total Bilirubin 0.7 (0.3-1.2) mg/dL AST 19 (0-34) U/L ALT 11 (10-49) U/L Alkaline Phosphatase 73 (46-116) U/L Albumin 4.3 (3.4-4.8) gm/dL Urine 09/20/24 Range/Units 21:21 Urine Color Yellow (Lt Yel-Yel) Urine Clarity Turbid A (Clear/Hazy) Urine pH 6.5 (5.0-7.0) Ur Specific [place] 1.015 (1.001-1.035) Urine Protein 1+ A (Neg - Trace) Urine Glucose (UA) Negative (Negative) Quality Measures Quality Measures none Advance care planning discussed with:: patient Medications Home Medications and Allergies Home Medications ?Medication ?Instructions ?Recorded ?Confirmed ?Type lisinopril 20 1 tab PO HS 06/25/22 09/21/24 History mg-hydrochlorothiazide 25 mg tablet pravastatin 20 mg tablet 1 tab PO QDAY 06/25/22 09/21/24 History timolol maleate 0.5 % eye drops 1 drp ophthalmic (eye) BID 06/25/22 09/21/24 History loratadine 10 mg capsule 10 mg PO BID 09/21/24 09/21/24 History Allergies Allergy/AdvReac Type Severity Reaction Status Date / Time No Known Allergies Allergy Unverified 06/25/22 17:05 Visit Medications Acetaminophen (Acetaminophen 325 Mg Tablet) 650 mg PO Q6H PRN PRN Reason: PAIN OR FEVER > 101 Stop: 10/20/24 20:22 Aspirin (Aspirin Ec 81 Mg Tabec) 81 mg PO QDAY [facility] Stop: 10/21/24 08:59 Last Admin: 09/21/24 08:39 Dose: 81 mg Heparin Sodium (Porcine) (Heparin Sod Inj 5000 Unit/Ml Vial) 5,000 unit SC Q12HR [facility] Stop: 10/04/24 20:59 Last Admin: 09/21/24 08:39 Dose: 5,000 unit Ceftriaxone Sodium/Dextrose (Rocephin/D5w 1gm Iv Premix) 50 mls @ 100 mls/hr IV DAILY@2100 [facility] Stop: 09/28/24 02:38 Last Infusion: 09/21/24 03:56 Dose: Infused Lisinopril (Lisinopril 2.5 Mg Tablet) 10 mg PO QDAY [facility] [place] Stop: 10/21/24 08:59 Last Admin: 09/21/24 08:38 Dose: Not Given Loratadine (Loratadine 10 Mg Tablet) 10 mg PO BID [facility] Stop: 10/21/24 09:59 Last Admin: 09/21/24 10:23 Dose: 10 mg Ondansetron HCl (Ondansetron Inj 2 Mg/Ml Inj 2 Ml) 4 mg IV Q6H PRN; Protocol PRN Reason: NAUSEA OR VOMITING Stop: 10/20/24 20:22 Pantoprazole Sodium (Pantoprazole 40 Mg Tablet) 40 mg PO QDAY [facility] Stop: 10/21/24 08:59 Last Admin: 09/21/24 08:39 Dose: 40 mg Pravastatin Sodium (Pravastatin Sodium 10 Mg Tablet) 20 mg PO HS [facility] Stop: 10/20/24 20:59 Last Admin: 09/20/24 21:11 Dose: 20 mg Discontinued Medications Aspirin (Aspirin 325 Mg Tablet) 325 mg PO X1 ONE Stop: 09/20/24 18:33 Last Admin: 09/20/24 18:52 Dose: 325 mg Magnesium Sulfate (Magnesium Sulfate Ivpb) 2 gm in 50 mls @ 25 mls/hr IV X1 ONE Stop: 09/20/24 22:46 Last Infusion: 09/21/24 00:46 Dose: Infused Lactated Ringer's (Lactated Ringers) 500 mls @ 999 mls/hr IV .Q31M ONE Stop: 09/21/24 10:10 Last Admin: 09/21/24 10:24 Dose: 999 mls/hr Meclizine HCl (Meclizine Hcl 25 Mg Tablet) 50 mg PO X1 ONE Stop: 09/20/24 15:22 Last Admin: 09/20/24 16:08 Dose: 50 mg Nitroglycerin (Nitroglycerin Oint 2% 1 Inch Packet) 1 inch TOP X1 ONE Stop: 09/20/24 18:33 Last Admin: 09/20/24 18:53 Dose: 1 inch Potassium Chloride (Potassium Chloride 20 Meq Tabcr) 20 meq PO X1 ONE Stop: 09/21/24 11:00 Last Admin: 09/21/24 11:25 Dose: 20 meq Assessment & Plan Plan Patient is an 84-year-old female with past medical history significant for essential hypertension, hyperlipidemia, glaucoma, allergic sinusitis/rhinitis, vertigo, history of syncope with ground-level fall [2021], bilateral distal fibula fractures s/p ORIF [2021]. Presented with a chief complaint of chills and dizziness yesterday. Patient was admitted for UTI and cardiology was consulted. 1. Rule out ACS 2. NSTEMI type I versus type II Likely type II in the setting of UTI and patient has no typical symptoms. On presentation patient had chills and dizziness. Denied any chest pain/pressure, palpitations or SOB. Also denied nausea/vomiting. On exam patient appeared euvolemic and has no chest wall point tenderness. Troponins were elevated at 0.148 subsequently up trended to 0.33 and down trended to 0.26. BNP 69 on admission Initial EKG showed sinus tachycardia rate 112 and repeat EKG showed sinus arrhythmia rate 69 with T wave inversions in lead III, aVR, V1. Chest x-ray on admission was significant for right lung base consolidation. Her last transthoracic echocardiogram [place] [address] Mitchell findings include: Normal left ventricular size and function. LVEF 50-55%. normal cardiac chamber size no significant regurgitant valves mild MAC aortic valve thickened Echocardiogram completed on 09/20/[address] Nevarez findings include: Normal LV size and function. Estimated EF 55-60%. Stage 1 diastolic dsfunction. Normal RV size and function. Mild MAC. Mild MR. Trace AI, TR. Patient potassium 3.3 and mg 2.4. Repleted with KCl 40 mEq p.o. and magnesium sulfate 2 g IV x 1. Recommend to maintain potassium greater than 4 and magnesium greater than 2 at all times to prevent any arrhythmia Plan: ? Recommend aspirin 81 Mg p.o. daily ? No need to further trend troponin ? Repeat transthoracic echocardiogram ordered to assess for any valvular defects, wall motion abnormalities and LVEF 3. Hyperlipidemia Patient is on pravastatin 20 Mg p.o. at bedtime at home Lipid panel on admission, triglyceride 123, cholesterol 154, LDL 78 Patient is >75 so it is okay to continue with moderate intensity statin Recommend LFTs every 3 months to monitor for toxicity and side effects. 4. BPPV 5. Likely orthostatic hypotension Patient states that she sometimes get dizziness upon changing her head position. Patient also states that when she wakes up in the morning she has to sit up slowly and wait a while before she gets out of bed because she feels dizzy if she gets up quickly. Plan: ? Recommend orthostatic vitals ? If orthostatic vitals positive recommend 40 mmHg compression stockings and abdominal binder ? Recommend meclizine 12.5 Mg p.o. as needed for dizziness 6. Allergic sinusitis/rhinitis 7. Acute left sphenoid sinusitis Gets monthly injections from Dr. Esparza at [facility] in [place] Head CT was significant for left sphenoid sinusitis. Recommend fluticasone nasal spray at night Continue rest of management as per primary team 8. UTI Patient endorses dysuria 3-4 days ago and she increased water intake subsequently subsided. Prior to admission patient developed chills and dizziness with no relief after taking Tylenol. On admission urinalysis was significant for cloudy urine, 1+ blood, 1+ protein, positive nitrites and leukocyte esterase and yeast. Patient was started on ceftriaxone 1 g IV daily Continue management as per primary team 9. History of vertigo 10. History of syncope with ground-level fall [2021] 11. History of bilateral distal fibula fractures s/p ORIF [2021] Patient's current dizziness but does not require a walker for ambulation. Most likely due to to her chronic allergies and recurrent sinusitis. 12. Glaucoma Patient's home medication timolol eyedrops. Continue management as per primary team Continue rest of management as per primary team. We are grateful to be able to participate in Ms. Redmond's care. Thank you for the consult Plan of care discussed with attending Cost Analyst, Dr Geri Canales MD PGY 1 Attending Provider Attestation/Addendum I have personally seen and examined the patient separately on the above date of service and discussed the plan of care with the resident. I reviewed the resident Dr. Canales consultation note and agree with the resident findings and plan in the note above and have also edited the documentation to reflect my findings and plan. Patient chief complaint was dizziness and some chills. During my interview with the patient patient explained that she has been having floating of her head or lightheadedness which occurs when she gets up in the morning and has to sit on the side of the bed and that sometimes hold the simmons and makes herself steady before she goes out of bed to the bathroom. She also endorses to having this floating of her head or lightheadedness even when she turns her head to the right and the left side. She was apparently diagnosed with vertigo few years ago but she feels that this dizziness is not the same as it is reported below. Patient clearly denied any kind of chest pain or chest pressure or orthopnea or PND or leg swelling or syncope or fall. Denies any fever but had chills as noted above. Denies any cough or sputum production but did have some recent sinusitis symptoms. Cardiology was consulted for elevated troponin of 0.148 on admission which increased to 0.33 now down trended to 0.22. EKG showed normal sinus rhythm without any evidence of acute ST-T changes. Will check an echocardiogram to rule out any regional wall motion abnormalities and to check LV function RV function as well as diastolic function. Unlikely acute coronary syndrome and mostly type II NSTEMI in the setting of supply/demand mismatch. If the echo is normal no further ischemic workup is needed as inpatient and can pursue further workup as outpatient with me in the office. No heparin drip. Aspirin statin and beta-carmel blood pressure permissible Regarding her dizziness patient possibly also has a component of orthostatic induced hypotension and recommend to check orthostatics PHILLIP. Also recommended to start bilateral legs stockings up to 40 mmHg along with abdominal binder and adequate fluid and salt intake if the orthostatic hypotension is positive. Also recommend isometric Patient also has possible BPPV,. As she does have similar symptoms even while in 8 to the right lower than left. She has never seen an ENT doctor before and will need a consultation for the same. Management of rest of the medical conditions as per the primary team. Thank you for the consult evaluate possible care of the patient. Cardiology will continue to follow. Natanael Nevarez M.D. Interventional Cardiology
[2024-09-21] MEDS: ACETAMINOPHEN 325 MG TABLET 650 MG PO (12:35)
--- NOTE | 2024-09-21 13:23 | PC.NURSE ---
Verified order placed with Dr. Canales for 2gm mag IV and [address] M[address] PO [address] Martin. Pt. received 2 gm mag in ER last night and 20 ME potassium PO today at 1135. Unable to reach Dr. Canales about this order. Dr. Martin orders to Give doses as ordered.
[2024-09-21] MEDS: Magnesium Sulfate 2 GM Ivpb 2 GM/50 ML BAG IV (13:30)
[2024-09-21] MEDS: POTASSIUM CHLORIDE 20 mEq TABCR 40 MEQ PO (13:30)
[2024-09-21 15:28] LABS: Troponin I 0.229 ng/mL (0.0-0.045)
--- NOTE | 2024-09-21 17:22 | PC.CM ---
Pt Bree Redmond is an 84 yr old female admitted to hospitalist services for demand ischemia, NSTEMI type II. AIR TESTER CC met with pt at bedside to complete initial assessment. AIR TESTER CC introduced self and role in pt care. At time of encounter pt is noted to be alert and oriented to person, place and situation. Pt expressed understanding admission orders and is in agreement with treatment plan. Pt able to confirm demographic information. Pt is from home [address] [place] [address], where she lives alone in a [place]. Pt identifies her daughter Mat Redmond [phone] as surrogate DM. Per pt in her home she has a 4-wheel rollator which she does not use as her home is small enough to navigate without it. Pt reports being independent with her ADLs. Pt does not require supplemental O2 in the home. Pt reports she is not diabetic and is not on dialysis. Pt is followed by Dr. Gurwinder Galaviz for primary care. At time of D/c pt would like to return home. Per pt her daughter will provide transport. Pt provided with copy of Advance Directive and provided education on how and who can sign as a witness. Pt agreeable to information provided.
[2024-09-21] MEDS: PRAVASTATIN SODIUM 10 MG TABLET 20 MG PO (20:35)
[2024-09-22] VITALS (8 sets, daily range): BP systolic 97–138; BP diastolic 59–71; PULSE 68–85; RESP 12–98; TEMP 36.1–37.4; O2SAT 94–95
[2024-09-22 05:54] LABS: Basophils % (Auto) 1 % (0-2.5); Eosinophils # (Auto) 0.2 Thou/mm3 (0.0-0.5); Eosinophils % (Auto) 3 % (0-10); Hematocrit 30.6 % (36.0-46.0); Hemoglobin 10.4 g/dL (12.0-16.0); Immature Granulocytes % (Auto) 1 % (0-0); Immature Granulocytes Auto 0.03 Thou/mm3 (0.00-0.00); Lymphocytes # (Auto) 1.6 Thou/mm3 (1.0-4.8); Lymphocytes % (Auto) 28 % (10-50); Mean Corpuscular Hemoglobin 33.4 pg (25.0-35.0); Mean Corpuscular Volume 98 fL (80-100); Monocytes # (Auto) 0.7 Thou/mm3 (0.0-0.8); Monocytes % (Auto) 11 % (0-12); Neutrophils # (Auto) 3.3 Thou/mm3 (1.8-7.7); Neutrophils % (Auto) 57 % (37-80); Nucleated Red Blood Cell % 0 /100 WBC (0); Platelet Count 190 Thou/mm3 (140-440); RDW Standard Deviation 45.8 fL (36.4-46.3); Red Blood Count 3.11 Miln/mm3 (4.00-5.20); White Blood Count 5.8 Thou/mm3 (3.6-11.0)
[2024-09-22 06:20] LABS: Anion Gap 4 (7-16); BUN/Creatinine Ratio 15 Ratio (12-20); Blood Urea Nitrogen 16 mg/dL (9-23); Calcium 8.8 mg/dL (8.3-10.6); Carbon Dioxide 28.7 mMol/L (20.0-31.0); Chloride 101 mMol/L (98-107); Creatinine (Component) 1.1 mg/dL (0.6-1.3); Estimated Creatinine Clearance 36.3 mL/min (>60); Glucose 94 mg/dL (74-106); Osmolality,Calculated 269 (275-295); Potassium 4.6 mMol/L (3.4-5.1); Sodium 134 mMol/L (136-145); eGFR 49 See Note
[2024-09-22] MEDS: lorataDINE 10 MG TABLET PO (08:39)
[2024-09-22] MEDS: PANTOPRAZOLE 40 MG TABLET PO (08:39)
[2024-09-22] MEDS: HEPARIN SOD INJ 5000 UNIT/ML VIAL SC (08:39)
[2024-09-22] MEDS: ASPIRIN EC 81 MG TABEC PO (08:39)
[2024-09-22] MEDS: Lisinopril 2.5 MG TABLET 10 MG PO (08:39)
--- NOTE | 2024-09-22 10:02 | PD.RESPRO ---
Documentation for date of: 09/22/24 Subjective Subjective Interval history: Patient was seen and examined at bedside this AM. No acute exents overnight. Patient tolerating diet, adequate urine output and mentation is at baseline. Patient endorses improvement of light-headedness and can ambulate to the restroom without assistance or dizziness Orthostatic vitals were negative, sitting SBP 107, standing SBP 122 Orthostatic hypotension ruled out, however patient's has BPPV symptoms intermittently. Recommend patient to see an ENT doctor as outpatient Troponin now downtrending to 0.229 from 0.26 likely supply/demand mismatch no need to further trend. Unliely ACS Follow-up with cardiology clinic within 1 week of discharge Exam Vital Signs Temp Pulse Resp BP Pulse Ox O2 Del Method O2 Flow Rate 98.5 F 85 12 138/71 H 94 L Room Air 2 09/22/24 07:48 09/22/24 08:39 09/22/24 07:48 09/22/24 08:39 09/22/24 07:48 09/22/24 07:48 09/20/24 19:57 Narrative Exam Constitutional Alert, oriented x 3 and comfortable. Elderly female HEENT Vision grossly intact. Patent nares. Trachea midline Respiratory Chest normal on inspection and clear auscultation bilaterally Cardiovascular S1 and S2 audible, RRR. No murmurs carotid bruit. No gross JVD. Abdominal Soft and non tender to palpation in all quadrants. BS + Genitourinary No bladder tenderness, no flank pain. Normal to palpation Musculoskeletal Extremities tone within normal limits. No LE edema. Neurological CN II - XII grossly intact. Extremity motor and sensation grossly intact. Skin Warm, dry and intact. No apparent lesions. Psychiatric Patient has good affect, is cooperative Objective Labs 09/22/24 05:35 09/22/24 05:35 Labs: Laboratory Results - last 24 hr 09/21/24 09/21/24 09/22/24 10:02 14:51 05:35 WBC 5.8 RBC 3.11 L Hgb 10.4 L Hct 30.6 L MCV 98 MCH 33.4 MCHC 34.0 RDW Std Deviation 45.8 Plt Count 190 Neut % (Auto) 57 Lymph % (Auto) 28 [place] % (Auto) 11 Eos % (Auto) 3 Baso % (Auto) 1 Neut # (Auto) 3.3 Lymph # (Auto) 1.6 [place] # (Auto) 0.7 Eos # (Auto) 0.2 Baso # (Auto) 0.0 Immature Gran # (Auto) 0.03 H Absolute Nucleated RBC 0.00 Immature Gran % 1 H Nucleated RBC % 0 Sodium 134 L Potassium 4.6 D Chloride 101 Carbon Dioxide 28.7 Anion Gap 4 L BUN 16 Creatinine 1.1 Estim Creat Clear Calc 36.3 L eGFR 49 L BUN/Creatinine Ratio 15 Glucose 94 Calculated Osmolality 269 L Calcium 8.8 Troponin I 0.260 H* 0.229 H* Quality Measures Quality Measures none Advance care planning discussed with:: patient Assessment & Plan Assessment Current Active Medications: Generic Name Dose Route Start Last Admin Trade Name Freq PRN Reason Stop Dose Admin Acetaminophen 650 mg 09/20/24 20:23 09/21/24 12:35 Acetaminophen 325 Mg Tablet PO 10/20/24 20:22 650 mg Q6H PRN Administration PAIN OR FEVER > 101 Aspirin 81 mg 09/21/24 09:00 09/22/24 08:39 Aspirin Ec 81 Mg Tabec PO 10/21/24 08:59 81 mg QDAY DIVINA Administration Heparin Sodium (Porcine) 5,000 unit 09/20/24 21:00 09/22/24 08:39 Heparin Sod Inj 5000 Unit/Ml Vial SC 10/04/24 20:59 5,000 unit Q12HR DIVINA Administration Ceftriaxone Sodium/Dextrose 50 mls @ 100 mls/hr 09/21/24 02:39 09/21/24 21:06 Rocephin/D5w 1gm Iv Premix IV 09/28/24 02:38 Infused DAILY@2100 DIVINA Infusion Lisinopril 10 mg 09/21/24 09:00 09/22/24 08:39 Lisinopril 2.5 Mg Tablet PO 10/21/24 08:59 10 mg QDAY DIVINA Administration Loratadine 10 mg 09/21/24 10:00 09/22/24 08:39 Loratadine 10 Mg Tablet PO 10/21/24 09:59 10 mg BID DIVINA Administration Meclizine HCl 12.5 mg 09/21/24 20:07 Meclizine Hcl 25 Mg Tablet PO 10/22/24 08:59 QDAY PRN DIZZINESS Ondansetron HCl 4 mg 09/20/24 20:23 Ondansetron Inj 2 Mg/Ml Inj 2 Ml IV 10/20/24 20:22 Q6H PRN NAUSEA OR VOMITING Protocol Pantoprazole Sodium 40 mg 09/21/24 09:00 09/22/24 08:39 Pantoprazole 40 Mg Tablet PO 10/21/24 08:59 40 mg QDAY DIVINA Administration Pravastatin Sodium 20 mg 09/20/24 21:00 09/21/24 20:35 Pravastatin Sodium 10 Mg Tablet PO 10/20/24 20:59 20 mg HS DIVINA Administration Plan Patient is an 84-year-old female with past medical history significant for essential hypertension, hyperlipidemia, glaucoma, allergic sinusitis/rhinitis, vertigo, history of syncope with ground-level fall [2021], bilateral distal fibula fractures s/p ORIF [2021]. Presented with a chief complaint of chills and dizziness yesterday. Patient was admitted for UTI and cardiology was consulted. 1. ACS - unlikely 2. NSTEMI type II - mostly secondary to supply/demand mismatch Likely type II in the setting of UTI and patient has no typical symptoms. On presentation patient had chills and dizziness. Denied any chest pain/pressure, palpitations or SOB. Also denied nausea/vomiting. On exam patient appeared euvolemic and has no chest wall point tenderness. Troponins were elevated at 0.148 subsequently up trended to 0.33 and down trended to 0.26. BNP 69 on admission Initial EKG showed sinus tachycardia rate 112 and repeat EKG showed sinus arrhythmia rate 69 with T wave inversions in lead III, aVR, V1. Chest x-ray on admission was significant for right lung base consolidation. Echocardiogram completed on 09/20/[address] Nevarez findings include: Normal LV size and function. Estimated EF 55-60%. Stage 1 diastolic dsfunction. Normal RV size and function. Mild MAC. Mild MR. Trace AI, TR. Patient potassium 3.3 and mg 2.4. Repleted with KCl 40 mEq p.o. and magnesium sulfate 2 g IV x 1. Recommend to maintain potassium greater than 4 and magnesium greater than 2 at all times to prevent any arrhythmia Plan: ? Continue aspirin 81 Mg p.o. daily, statin and beta carmel once blood pressure allows ? No need to further trend troponin ? Echocardiogram was normal therefore no further ischemic necessary as inpatient and continue follow-up as outpatient - Follow up in Cardiology clinic within 1 week of discharge 3. Hyperlipidemia Patient is on pravastatin 20 Mg p.o. at bedtime at home Lipid panel on admission, triglyceride 123, cholesterol 154, LDL 78 Patient is >75 so it is okay to continue with moderate intensity statin Recommend LFTs every 3 months to monitor for toxicity and side effects. 4. BPPV 5. Orthostatic hypotension - ruled our Patient states that she sometimes get dizziness upon changing her head position. Patient also states that when she wakes up in the morning she has to sit up slowly and wait a while before she gets out of bed because she feels as if she is floating if she gets up quickly. Orthostatic vitals were negative, sitting SBP 107, standing SBP 122 Plan: ? Recommend meclizine 12.5 Mg p.o. as needed for dizziness - Recommend patient to see an ENT surgeon for BPPV 6. Allergic sinusitis/rhinitis 7. Acute left sphenoid sinusitis Gets monthly injections from Dr. Esparza at [facility] in [place] Head CT was significant for left sphenoid sinusitis. Recommend fluticasone nasal spray at night Continue rest of management as per primary team 8. UTI Patient endorses dysuria 3-4 days ago and she increased water intake subsequently subsided. Prior to admission patient developed chills and dizziness with no relief after taking Tylenol. On admission urinalysis was significant for cloudy urine, 1+ blood, 1+ protein, positive nitrites and leukocyte esterase and yeast. Patient was started on ceftriaxone 1 g IV daily Continue management as per primary team 9. History of vertigo 10. History of syncope with ground-level fall [2021] 11. History of bilateral distal fibula fractures s/p ORIF [2021] Patient's current dizziness but does not require a walker for ambulation. Most likely due to to her chronic allergies and recurrent sinusitis. 12. Glaucoma Patient's home medication timolol eyedrops. Continue management as per primary team Continue rest of management as per primary team. We are grateful to be able to participate in Ms. Redmond's care. Thank you for the consult Plan of care discussed with attending Geophysical Operator, Dr Geri Canales MD PGY 1 Attending Provider Attestation/Addendum I have personally seen and examined the patient separately on the above date of service and discussed the plan of care with the resident. I reviewed the resident Dr. Canales consultation progress note and agree with the resident findings and plan in the note above and have also edited the documentation to reflect my findings and plan. Natanael Nevarez M.D. Interventional Cardiology
--- NOTE | 2024-09-22 10:06 | PC.NURSE ---
Per Dr. Martin no need for pt. eval prior to discharge.
[2024-09-22 10:15] LABS: Magnesium 2.3 mg/dL (1.6-2.6)
--- NOTE | 2024-09-22 11:03 | ESDS_ITS ---
<Statement entered by Matthew Ware MD - 10/03/24 16:26> I reviewed above note and agree with findings and plans. I have also personally examined the patient with medicine team and went over assessment and plan with medical team including policy intern and resident physician. Planned Discharge Date 09/22/24 DS: Providers Provider Date of admission: 09/20/24 20:23 Primary care physician: Gurwinder Galaviz MD Admitting Provider: Declan Hernandez MD Attending Provider on Admission: Matthew Ware MD Consults: 09/21/24 11:04 Consult to Cardiology Routine Comment: Consulting Provider: Natanael Nevarez Attending Provider on DC: Matthew Ware MD Discharging Provider: Matthew Ware MD DS: Diagnosis Problem List Completed Was Problem List Reviewed/Reconciled?: Yes Hospital Course Hospital Course Hospital course: 84-year-old female with past medical history of hypertension, HFpEF, and hyperlipidemia was admitted to the hospital on 09/20/2024 for NSTEMI type II and UTI. In the ED patient was complaining of nausea and vomiting associated with dizziness and chills, but denied any chest pain at this time. Initially patient was tachycardic, hypertensive, and afebrile. Initial labs were relevant for leukocytosis, normocytic normochromic anemia, hyponatremia, troponinemia, and UTI. Initial imaging included head CT which was negative for any hemorrhages or mass effect, EKG which showed sinus tachycardia, but no ST changes, and chest x- ray which showed suspicion for early pneumonia of the right base. Given the patient's elevated troponins she was given aspirin 325 mg as well as nitroglycerin and magnesium. Patient was also given 1 dose of Rocephin given her UTI and was given 50 mL bolus as well as potassium was repleted on the next morning after admission. During assessment patient was stable with her troponins downtrending and echo showed EF of 55-60%. At this time cardiology was consulted and stated the patient was stable to be discharged home and no need for heparin drip at this time. At the time of discharge patient was stable enough to be discharged home with her WBCs downtrending and troponins ariana ntrending as well. Discharge plan: Start taking aspirin 81 mg daily. Take Cephalexin 1 tab every 6 hours for 3 days. Continue home medications as prescribed. Follow up with PCP and cardiology within 2 weeks. Problem list: #NSTEMI type II likely demand ischemia #Hypotension #UTI #Leukocytosis #Hx of HFpEF (50-55% 2021) #Normocytic normochromic anemia #Electrolyte imbalance #Hypokalemia #Hyponatremia #Hypochloremia #Hx of hypertension #Hx of hyperlipidemia Case disclosed with Attending Dr. Ware and My senior Dr. Lobo PGY2. Boo Sheldon PGY1 Status at Discharge Overall status at discharge: patient is progressing back to baseline Time Spent with Patient Time attestation: Total time spent providing and/or coordinating discharge services:>35 min Exam Vital Signs Temp Pulse Resp BP Pulse Ox O2 Del Method O2 Flow Rate 97.5 F 84 16 106/67 94 L Room Air 2 09/22/24 10:15 09/22/24 10:15 09/22/24 10:15 09/22/24 10:15 09/22/24 10:15 09/22/24 10:15 09/20/24 19:57 Narrative Exam General: A/O x3, no acute distress Eyes: PERRL, EOMI. Anicteric, vision grossly intact. Ears: No ear pain, no ear discharge, Hearing grossly intact. Nose: No nasal discharge. Mouth/Throat: Dry mucous membranes, no redness, no lesions. Neck: Neck supple, non-tender, no cervical lymphadenopathy. Lungs: Clear TROY to auscultation and percussion, No accessory muscle use. Cardio: Normal S1/S2, regular rhythm, no murmurs, no JVD Abdomen: Soft, non-tender, no palpable masses, peristalsis present, no guarding or rebound. Extremities: Symmetrical, no significant deformities, no peripheral edema , non-tender, peripheral pulses presents. Skin: No rashes, no lesions, warm to touch. Neuro: No focal neurological deficits. motor and sensory intact Psych: Cooperative, appropriate mood and effect. Discharge Plan Plan Patient Disposition: HOME (Self Care) Care Plan Goals: Start taking aspirin 81 mg daily. Take Cephalexin 1 tab every 6 hours for 3 days. Continue home medications as prescribed. Follow up with PCP and cardiology within 2 weeks. Prescriptions/Referrals Prescriptions/Med Rec: New cephalexin 500 mg capsule 500 mg PO Q6H 3 Days Qty: 12 0RF aspirin 81 mg capsule 81 mg PO QDAY Qty: 30 0RF Continued lisinopril-hydrochlorothiazide 20-25 mg tablet 1 tab PO HS pravastatin 20 mg tablet 1 tab PO QDAY timolol maleate 0.5 % Drops 1 drp OPHTHALMIC (EYE) BID loratadine 10 mg Capsule 10 mg PO BID Referrals: Gurwinder Galaviz MD [Primary Care Provider] - Patient/Caregiver Discharge Instructions Other Discharge Activity Instructions:: Start taking aspirin 81 mg daily. Take Cephalexin 1 tab every 6 hours for 3 days. Continue home medications as prescribed. Follow up with your primary care doctor and cardiology within 2 weeks. Education Materials: What Is Pneumonia?, Preventing Pneumonia, Treating Pneumonia, Urinary Tract Infections in Women, Understanding Urinary Tract ... Print Language: Urdu Stand Alone Forms: Maye Award Info., Patient Portal Info Letter Discharge Order Discharge Orders: Discharge (Routine); Ordered 09/22/24 Ordered By: Vinay Lobo Quality Discharge Quality Measures VTE prophylaxis
== END 2024-09-22 10:32 | disposition home or self-care (01) | DRG 689 ==
LOC: SERX 18:49 → SERHOLD 20:32 → S2NX 09-21 08:07
PROVIDERS: Nurse Practitioner Primary Care; Student in an Organized Health Care Education/Training Program; Admitting Provider Internal Medicine; Emergency Provider Emergency Medicine; PCP Family Medicine; Visit Provider Internal Medicine
DX: N39.0 Urinary tract infection, site not specified (principal); I21.A1 Myocardial infarction type 2; E87.1 Hypo-osmolality and hyponatremia; I50.32 Chronic diastolic (congestive) heart failure; I11.0 Hypertensive heart disease with heart failure; H81.10 Benign paroxysmal vertigo, unspecified ear; E78.00 Pure hypercholesterolemia, unspecified; D64.9 Anemia, unspecified; J01.30 Acute sphenoidal sinusitis, unspecified; I95.9 Hypotension, unspecified; H40.9 Unspecified glaucoma; J30.9 Allergic rhinitis, unspecified; E87.6 Hypokalemia; E87.8 Other disorders of electrolyte and fluid balance, not elsewhere classified; Z79.899 Other long term (current) drug therapy; Z87.891 Personal history of nicotine dependence
CPT/HCPCS: 36415; 70450; 71045; 80048; 80053; 80061; 81001; 83735; 83880; 84100; 84443; 84484; 85025; 85610; 85730; 87077; 87086; 87186; 87502; 87634; 87811; 93005; 93306; 96365; 96366; 96367; 96372; 99285; J0696; J1643; J3475; J7120; A9270; J1644

== ENCOUNTER → 2024-09-29 | Outpatient (CLI) | payer OTHER, SELFPAY ==
[2024-09-29 15:28] LABS: Anion Gap 7 (7-16); BUN/Creatinine Ratio 18 Ratio (12-20); Blood Urea Nitrogen 18 mg/dL (9-23); Calcium 9.5 mg/dL (8.3-10.6); Carbon Dioxide 27.2 mMol/L (20.0-31.0); Chloride 91 mMol/L (98-107); Glucose 99 mg/dL (74-106); Osmolality,Calculated 253 (275-295); Potassium 3.8 mMol/L (3.4-5.1); Sodium 125 mMol/L (136-145); eGFR 55 See Note
== END | disposition home or self-care (01) ==
LOC: COPL 14:11
PROVIDERS: PCP Family Medicine; Referring Provider Nurse Practitioner Family; Visit Provider Nurse Practitioner Family
DX: E87.6 Hypokalemia (principal)
CPT/HCPCS: 36415; 80048

== ENCOUNTER → 2024-10-05 | Outpatient (CLI) | payer OTHER, SELFPAY ==
[2024-10-05 12:00] LABS: Anion Gap 7 (7-16); BUN/Creatinine Ratio 20 Ratio (12-20); Blood Urea Nitrogen 18 mg/dL (9-23); Calcium 9.5 mg/dL (8.3-10.6); Carbon Dioxide 30.2 mMol/L (20.0-31.0); Chloride 95 mMol/L (98-107); Creatinine (Component) 0.9 mg/dL (0.6-1.3); Glucose 93 mg/dL (74-106); Osmolality,Calculated 266 (275-295); Sodium 132 mMol/L (136-145); eGFR > 60 See Note
== END | disposition home or self-care (01) ==
LOC: COPL 09:46
PROVIDERS: PCP Nurse Practitioner Family; Referring Provider Nurse Practitioner Family; Visit Provider Nurse Practitioner Family
DX: E88.9 Metabolic disorder, unspecified (principal)
CPT/HCPCS: 36415; 80048

== ENCOUNTER → 2024-10-13 | Outpatient (CLI) | payer OTHER, SELFPAY ==
[2024-10-13 16:22] LABS: Collection Type, Urine Clean Catch
[2024-10-13 18:00] LABS: Bacteria,Urine Rare; Bilirubin,Urine Negative (Negative); Blood,Urine Negative (Negative); Color,Urine Yellow (Lt Yel-Yel); Glucose, Urine Negative (Negative); Ketones,Urine Negative (Negative); Leukocyte Esterase,Urine Positive (Negative); Nitrite,Urine Positive (Negative); PH,Urine 7.5 (5.0-7.0); Protein,Urine Negative (Neg - Trace); RBC,Urine 5 /hpf (0-3); Specific Gravity,Urine 1.012 (1.001-1.035); Squamous Epithelial Cell,Urine 2 /hpf (0-5); Urobilinogen,Urine Negative mg/dL (0.0-1.0); WBC,Urine 118 /hpf (0-5)
[2024-10-13 18:02] LABS: Clarity,Urine Hazy (Clear/Hazy)
== END | disposition home or self-care (01) ==
LOC: SLDO 16:14
PROVIDERS: PCP Nurse Practitioner Family; Referring Provider Nurse Practitioner Family; Visit Provider Nurse Practitioner Family
DX: N30.00 Acute cystitis without hematuria (principal); N18.30 Chronic kidney disease, stage 3 unspecified
CPT/HCPCS: 81001; 87077; 87086; 87186

== ENCOUNTER → 2024-11-19 | Outpatient (CLI) | payer OTHER, SELFPAY ==
[2024-11-19 10:23] LABS: Basophils # (Auto) 0.1 Thou/mm3 (0.0-0.2); Basophils % (Auto) 1 % (0-2.5); Eosinophils # (Auto) 0.3 Thou/mm3 (0.0-0.5); Eosinophils % (Auto) 4 % (0-10); Hematocrit 35.3 % (36.0-46.0); Hemoglobin 12.3 g/dL (12.0-16.0); Immature Granulocytes % (Auto) 0 % (0-0); Immature Granulocytes Auto 0.03 Thou/mm3 (0.00-0.00); Lymphocytes # (Auto) 2.1 Thou/mm3 (1.0-4.8); Lymphocytes % (Auto) 31 % (10-50); Mean Corpuscular HGB Conc 34.8 g/dl (31.0-37.0); Mean Corpuscular Hemoglobin 33.2 pg (25.0-35.0); Mean Corpuscular Volume 95 fL (80-100); Monocytes # (Auto) 0.6 Thou/mm3 (0.0-0.8); Monocytes % (Auto) 9 % (0-12); Neutrophils # (Auto) 3.7 Thou/mm3 (1.8-7.7); Neutrophils % (Auto) 55 % (37-80); Nucleated Red Blood Cell % 0 /100 WBC (0); Platelet Count 269 Thou/mm3 (140-440); RDW Standard Deviation 43.8 fL (36.4-46.3); White Blood Count 6.7 Thou/mm3 (3.6-11.0)
[2024-11-19 11:01] LABS: Alanine Aminotransferase 13 U/L (10-49); Albumin, Serum 4.5 gm/dL (3.4-4.8); Alkaline Phosphatase 69 U/L (46-116); Anion Gap 6 (7-16); Aspartate Amino Transferase 18 U/L (0-34); BUN/Creatinine Ratio 15 Ratio (12-20); Bilirubin,Direct 0.2 mg/dL (0.0-0.3); Bilirubin,Total 0.7 mg/dL (0.3-1.2); Blood Urea Nitrogen 12 mg/dL (9-23); Calcium 9.9 mg/dL (8.3-10.6); Carbon Dioxide 30.9 mMol/L (20.0-31.0); Cardiac Risk Estimate 3.4 RATIO (3.7-5.6); Chloride 97 mMol/L (98-107); Cholesterol 213 mg/dL (132-200); Creatinine (Component) 0.8 mg/dL (0.6-1.3); Free T4 (Free Thyroxine) 1.14 ng/dL (0.89-1.76); Glucose 98 mg/dL (74-106); HDL Cholesterol 62 mg/dL (40-60); LDL Cholesterol,Calculated 117 mg/dL (0-130); Osmolality,Calculated 267 (275-295); Potassium 4.1 mMol/L (3.4-5.1); Sodium 134 mMol/L (136-145); Thyroid Stimulating Hormone 1.33 uIU/mL (0.55-4.78); Total Protein 7.2 gm/dL (5.7-8.2); Triglycerides 171 mg/dL (30-150); eGFR > 60 See Note
== END | disposition home or self-care (01) ==
LOC: COPL 09:17
PROVIDERS: PCP Family Medicine; Referring Provider Internal Medicine Cardiovascular Disease; Visit Provider Internal Medicine Cardiovascular Disease
DX: I10 Essential (primary) hypertension (principal); E78.5 Hyperlipidemia, unspecified; E07.9 Disorder of thyroid, unspecified
CPT/HCPCS: 36415; 80048; 80061; 80076; 84439; 84443; 85025

== ENCOUNTER → 2025-01-04 | Outpatient (CLI) | payer OTHER, SELFPAY | END | disposition home or self-care (01) | LOC: SLDO 14:35 | PROVIDERS: PCP Nurse Practitioner Family; Referring Provider Nurse Practitioner Family; Visit Provider Nurse Practitioner Family | DX: N30.00 Acute cystitis without hematuria (principal) | CPT/HCPCS: 87077; 87086; 87186 ==

== ENCOUNTER → 2025-01-28 | Outpatient (CLI) | payer OTHER, SELFPAY ==
[2025-01-28 10:16] LABS: Anion Gap 8 (7-16); BUN/Creatinine Ratio 13 Ratio (12-20); Blood Urea Nitrogen 12 mg/dL (9-23); Calcium 10.4 mg/dL (8.3-10.6); Carbon Dioxide 29.4 mMol/L (20.0-31.0); Chloride 97 mMol/L (98-107); Creatinine (Component) 0.9 mg/dL (0.6-1.3); Glucose 94 mg/dL (74-106); Osmolality,Calculated 267 (275-295); Potassium 4.3 mMol/L (3.4-5.1); Sodium 134 mMol/L (136-145); eGFR > 60 See Note
== END | disposition home or self-care (01) ==
PROVIDERS: PCP Nurse Practitioner Family; Referring Provider Internal Medicine Cardiovascular Disease; Visit Provider Internal Medicine Cardiovascular Disease
DX: E78.5 Hyperlipidemia, unspecified (principal); I10 Essential (primary) hypertension
CPT/HCPCS: 36415; 80048

== ENCOUNTER → 2025-02-16 | Outpatient (CLI) | payer OTHER, SELFPAY ==
[2025-02-16 09:43] LABS: Anion Gap 6 (7-16); BUN/Creatinine Ratio 12 Ratio (12-20); Blood Urea Nitrogen 12 mg/dL (9-23); Calcium 9.6 mg/dL (8.3-10.6); Carbon Dioxide 29.8 mMol/L (20.0-31.0); Chloride 97 mMol/L (98-107); Glucose 99 mg/dL (74-106); Magnesium 1.7 mg/dL (1.6-2.6); Osmolality,Calculated 266 (275-295); Potassium 3.9 mMol/L (3.4-5.1); Sodium 133 mMol/L (136-145); eGFR 55 See Note
== END | disposition home or self-care (01) ==
LOC: COPL 08:35
PROVIDERS: PCP Nurse Practitioner Family; Referring Provider Nurse Practitioner Family; Visit Provider Nurse Practitioner Family
DX: E87.6 Hypokalemia (principal); E87.1 Hypo-osmolality and hyponatremia; N18.30 Chronic kidney disease, stage 3 unspecified
CPT/HCPCS: 36415; 80048; 83735

== ENCOUNTER → 2025-03-15 | Outpatient (CLI) | payer OTHER, SELFPAY ==
[2025-03-15 10:19] LABS: Collection Type, Urine Clean Catch
[2025-03-15 10:35] LABS: Basophils % (Auto) 1 % (0-2.5); Eosinophils # (Auto) 0.2 Thou/mm3 (0.0-0.5); Eosinophils % (Auto) 3 % (0-10); Hemoglobin 12.6 g/dL (12.0-16.0); Immature Granulocytes % (Auto) 0 % (0-0); Immature Granulocytes Auto 0.02 Thou/mm3 (0.00-0.00); Lymphocytes # (Auto) 2.1 Thou/mm3 (1.0-4.8); Lymphocytes % (Auto) 33 % (10-50); Mean Corpuscular HGB Conc 34.1 g/dl (31.0-37.0); Mean Corpuscular Hemoglobin 32.7 pg (25.0-35.0); Mean Corpuscular Volume 96 fL (80-100); Monocytes # (Auto) 0.6 Thou/mm3 (0.0-0.8); Monocytes % (Auto) 9 % (0-12); Neutrophils # (Auto) 3.4 Thou/mm3 (1.8-7.7); Neutrophils % (Auto) 54 % (37-80); Nucleated Red Blood Cell % 0 /100 WBC (0); Platelet Count 259 Thou/mm3 (140-440); RDW Standard Deviation 44.2 fL (36.4-46.3); Red Blood Count 3.85 Miln/mm3 (4.00-5.20); White Blood Count 6.4 Thou/mm3 (3.6-11.0)
[2025-03-15 11:04] LABS: Vitamin B12 563 pg/mL (211-911)
[2025-03-15 11:07] LABS: Iron 79 mcg/dL (50-170)
[2025-03-15 11:11] LABS: Bilirubin,Urine Negative (Negative); Blood,Urine Negative (Negative); Calcium Oxalate Crystals,Urine 1+; Clarity,Urine Turbid (Clear/Hazy); Color,Urine Yellow (Lt Yel-Yel); Glucose, Urine Negative (Negative); Hyaline Casts,Urine < 1 /hpf (0-1); Ketones,Urine Negative (Negative); Leukocyte Esterase,Urine Positive (Negative); Nitrite,Urine Positive (Negative); PH,Urine 6.5 (5.0-7.0); Protein,Urine Trace (Neg - Trace); RBC,Urine 4 /hpf (0-3); Squamous Epithelial Cell,Urine 2 /hpf (0-5); Urobilinogen,Urine Negative mg/dL (0.0-1.0); WBC,Urine 21 /hpf (0-5)
[2025-03-15 11:16] LABS: Culture Indicated,Urine Yes
[2025-03-15 11:17] LABS: Alanine Aminotransferase 14 U/L (10-49); Albumin, Serum 4.4 gm/dL (3.4-4.8); Albumin/Globulin Ratio 1.6 (1.2-2.2); Alkaline Phosphatase 64 U/L (46-116); Anion Gap 9 (7-16); Aspartate Amino Transferase 22 U/L (0-34); BUN/Creatinine Ratio 13 Ratio (12-20); Bilirubin,Total 0.6 mg/dL (0.3-1.2); Blood Urea Nitrogen 13 mg/dL (9-23); Calcium 9.3 mg/dL (8.3-10.6); Calcium (Corrected) 9.3 mg/dL (8.5-10.1); Carbon Dioxide 29.7 mMol/L (20.0-31.0); Cardiac Risk Estimate 3.6 RATIO (3.7-5.6); Chloride 98 mMol/L (98-107); Cholesterol 215 mg/dL (132-200); Globulin 2.8 gm/dL (2.3-3.5); Glucose 102 mg/dL (74-106); HDL Cholesterol 60 mg/dL (40-60); LDL Cholesterol,Calculated 114 mg/dL (0-130); Osmolality,Calculated 273 (275-295); Potassium 4.2 mMol/L (3.4-5.1); Sodium 137 mMol/L (136-145); Thyroid Stimulating Hormone 1.82 uIU/mL (0.55-4.78); Total Protein 7.2 gm/dL (5.7-8.2); Triglycerides 205 mg/dL (30-150); eGFR 55 See Note
== END | disposition home or self-care (01) ==
LOC: COPL 09:40
PROVIDERS: PCP Family Medicine; Referring Provider Nurse Practitioner Family; Visit Provider Nurse Practitioner Family
DX: Z00.00 Encounter for general adult medical examination without abnormal findings (principal); D63.8 Anemia in other chronic diseases classified elsewhere; I10 Essential (primary) hypertension; E78.2 Mixed hyperlipidemia
CPT/HCPCS: 36415; 80053; 80061; 81001; 82607; 83540; 84443; 85025; 87077; 87086; 87186

== ENCOUNTER → 2025-03-18 | Outpatient (CLI) | payer OTHER, SELFPAY ==
[2025-03-21 07:37] LABS: Fecal Globin Result NOT DETECTED (NOT DETECTED)
== END | disposition home or self-care (01) ==
LOC: SLDO 09:13
PROVIDERS: PCP Nurse Practitioner Family; Referring Provider Nurse Practitioner Family; Visit Provider Nurse Practitioner Family
DX: Z00.00 Encounter for general adult medical examination without abnormal findings (principal); D63.8 Anemia in other chronic diseases classified elsewhere
CPT/HCPCS: 82274; G0328

== ENCOUNTER → 2025-09-15 | Outpatient (CLI) | payer OTHER, SELFPAY ==
[2025-09-15 09:46] LABS: Anion Gap 8 (7-16); BUN/Creatinine Ratio 11 Ratio (12-20); Blood Urea Nitrogen 10 mg/dL (9-23); Calcium 9.4 mg/dL (8.3-10.6); Carbon Dioxide 29.0 mMol/L (20.0-31.0); Chloride 100 mMol/L (98-107); Creatinine (Component) 0.9 mg/dL (0.6-1.3); Glucose 94 mg/dL (74-106); Osmolality,Calculated 272 (275-295); Potassium 3.8 mMol/L (3.4-5.1); Sodium 137 mMol/L (136-145); eGFR > 60 See Note
== END | disposition home or self-care (01) ==
LOC: COPL 08:35
PROVIDERS: PCP Family Medicine; Referring Provider Nurse Practitioner Family; Visit Provider Nurse Practitioner Family
DX: I10 Essential (primary) hypertension (principal)
CPT/HCPCS: 36415; 80048